=== PATIENT | male | born 1950 | race Caucasian/White ===

== ENCOUNTER 2020-10-28 19:16 | Inpatient (IN) | payer MEDICARE, OTHER ==
[~2020-10-28] VITALS: Ht 182.9 cm; Wt 107.2 kg
[2020-10-28] MEDS ORDERED: VANCOMYCIN HCL 1 GM/D5% WATER 200 ML IV ONE (20:00)
[2020-10-28] MEDS ORDERED: SODIUM CHLORIDE 0.9% 2,000 ML IV ONE (20:00)
[2020-10-28 20:29] LABS: BASOPHILS % (AUTO) 0.2 % (0.0-2.0); EOSINOPHILS % (AUTO) 0 % (1.0-6.0); HEMATOCRIT 42.7 % (41-53); LYMPHOCYTES # (AUTO) 0.5 K/uL (1.0-4.8); LYMPHOCYTES % (AUTO) 2.4 % (22.0-44.0); MEAN CORPUSCULAR HEMOGLOBIN 25.5 pg (26.0-34.0); MEAN CORPUSCULAR HGB CONC 32.8 G/dL (31.0-37.0); MEAN CORPUSCULAR VOLUME 78 fL (80-100); MONOCYTES % (AUTO) 5.3 % (2.0-9.0); NEUTROPHILS # (AUTO) 17.5 K/uL (1.8-7.7); NEUTROPHILS % (AUTO) 92.1 % (40.0-70.0); PLATELET COUNT (AUTO) 165 K/uL (150-450); RED BLOOD CELL COUNT(AUTO) 5.49 MIL/uL (4.50-5.90); RED CELL DISTRIBUTION WIDTH 14.4 % (11.5-14.5)
[2020-10-28 20:41] LABS: ANION GAP 9 mmol/L (8-16); CALCIUM, TOTAL 9.9 mg/dL (8.8-10.5); CARBON DIOXIDE 28 mmol/L (22-29); CHLORIDE 97 mmol/L (98-107); CREATININE 3.07 mg/dL (0.60-1.30); GLOMERULAR FILTR. RATE CALC 20 mL/min (>60); GLUCOSE,RANDOM 156 mg/dL (70-110); POTASSIUM 3.5 mmol/L (3.5-5.1); PROTHROMBIN TIME 11.1 SEC (9.4-11.6); SODIUM SERUM 134 mmol/L (136-145); UREA NITROGEN, BLOOD 50 mg/dL (7-18)
[2020-10-28 20:44] LABS: COVID AG,FIA SOURCE NASOPHARYNGEAL
[2020-10-28 20:47] LABS: APPEARANCE,URINE TURBID (CLEAR); BILIRUBIN,URINE NEGATIVE (NEGATIVE); GLUCOSE, URINE (UA) NEGATIVE (NEGATIVE); KETONES,URINE NEGATIVE (NEGATIVE); LEUKOCYTE ESTERASE ,URINE LARGE (NEGATIVE); NITRATE,URINE NEGATIVE (NEGATIVE); OCCULT BLOOD,URINE LARGE (NEGATIVE); PROTEIN,URINE SEE CONFIRM (NEGATIVE); UROBILINOGEN,URINE 0.2 mg/dL (<=1.0)
[2020-10-28 20:48] LABS: TROPONIN I 0.04 ng/mL (0.00-0.05)
[2020-10-28 20:49] LABS: LACTIC ACID 1.6 mmol/L (0.4-2.0)
[2020-10-28 20:54] LABS: B-TYPE NATRIURETIC PEPTIDE 238 pg/mL (0-100)
[2020-10-28 20:55] LABS: AMMONIA < 10 umol/L (11-32)
[2020-10-28 20:59] LABS: AMPHET/METH SCREEN,URINE NEGATIVE (NEGATIVE); BARBITURATE SCREEN, URINE NEGATIVE (NEGATIVE); BENZODIAZEPINES SCREEN,URINE NEGATIVE (NEGATIVE); CANNABINOID SCREEN,URINE NEGATIVE (NEGATIVE); COCAINE SCREEN,URINE NEGATIVE (NEGATIVE); METHADONE SCREEN, URINE NEGATIVE (NEGATIVE); OPIATE SCREEN,URINE NEGATIVE (NEGATIVE)
[2020-10-28 21:00] LABS: PHENCYCLIDINE SCREEN,URINE NEGATIVE (NEGATIVE)
[2020-10-28 21:05] LABS: ALANINE AMINOTRANSFERASE 17 U/L (12-78); ALBUMIN 3.8 g/dL (3.4-5.0); ALKALINE PHOSPHATASE 81 U/L (46-116); ASPARTATE AMINOTRANSFERASE 14 U/L (15-37); BILIRUBIN,TOTAL 1.6 mg/dL (0.1-1.0); CREATINE KINASE, TOTAL ONLY 118 U/L (39-308); LIPASE 109 U/L (73-393); TOTAL PROTEIN, SERUM 8.7 g/dL (6.4-8.2)
[2020-10-28 21:20] LABS: SULFOSALICYLIC ACID,URINE 2+ (Negative)
[2020-10-28 21:26] LABS: WBC,URINE 51-100 /HPF (0-5)
[2020-10-28 21:27] LABS: BACTERIA,URINE Many /HPF (None Seen)
[2020-10-28] MEDS ORDERED: ONDANSETRON HCL 4 MG/2 ML VIAL IVP PRN (22:00)
[2020-10-28] MEDS ORDERED: ACETAMINOPHEN 325 MG TABLET PO PRN (22:00)
[2020-10-28] MEDS ORDERED: DEXTROSE 50%-WATER 25 GM/50 ML SYRINGE IVP PRN (22:00)
[2020-10-28] MEDS ORDERED: VANCOMYCIN HCL 1 GM/D5% WATER 200 ML IV PRN (22:15)
[2020-10-28 22:40] VITALS: BP 173/82
[2020-10-28] MEDS ORDERED: SODIUM CHLORIDE 0.9% 250 ML IV ONE (22:40)
[2020-10-28 22:51] LABS: CREATININE,URINE RANDOM 225.9 mg/dL (30.0-125.0)
[2020-10-28] MEDS: PIPERACILLIN SODIUM/TAZOBACTAM 2.25 GM in DEXTROSE 5%-WATER 50 ML IV SCH (23:29)
[2020-10-28] MEDS: HEPARIN SODIUM,PORCINE 5,000 UNITS/ML VIAL SQ SCH (23:56)
[2020-10-29] VITALS (7 sets, daily range): BP systolic 124–174; BP diastolic 69–90
[2020-10-29] MEDS ORDERED: VANCOMYCIN HCL 1 GM/D5% WATER 200 ML IV ONE
[2020-10-29] MEDS ORDERED: AmLODIPine BESYLATE 5 MG TABLET PO ONE (00:15)
[2020-10-29] MEDS: PIPERACILLIN SODIUM/TAZOBACTAM 2.25 GM in DEXTROSE 5%-WATER 50 ML IV SCH ×4 (04:57→23:00)
[2020-10-29 05:41] LABS: GLUCOMETER DEV NAME(LOC) 5S.1; GLUCOSE,POINT OF CARE 148 MG/DL (70-110)
[2020-10-29] MEDS: AmLODIPine BESYLATE 5 MG TABLET PO SCH (07:57)
[2020-10-29] MEDS: HEPARIN SODIUM,PORCINE 5,000 UNITS/ML VIAL SQ SCH ×2 (07:58→20:52)
[2020-10-29 08:04] LABS: CALCIUM, TOTAL 8.6 mg/dL (8.8-10.5); CREATININE 2.37 mg/dL (0.60-1.30); POTASSIUM 3.2 mmol/L (3.5-5.1)
[2020-10-29] MEDS ORDERED: POTASSIUM CHLORIDE 20 MEQ ER TABLET PO ONE (10:00)
[2020-10-29] MEDS: SODIUM CHLORIDE 0.45% 1,000 ML IV SCH (11:15)
[2020-10-29] MEDS: INSULIN LISPRO 100 UNITS/ML SQ PRN (12:40)
[2020-10-30] VITALS (7 sets, daily range): BP systolic 132–181; BP diastolic 61–99
[2020-10-30 02:31] LABS: GLUCOMETER DEV NAME(LOC) 5S.2B; GLUCOSE,POINT OF CARE 148 MG/DL (70-110)
[2020-10-30 02:31] LABS: GLUCOMETER DEV NAME(LOC) 5S.2B; GLUCOSE,POINT OF CARE 123 MG/DL (70-110)
[2020-10-30 04:53] LABS: GLUCOMETER DEV NAME(LOC) 5S.1; GLUCOSE,POINT OF CARE 105 MG/DL (70-110)
[2020-10-30] MEDS: PIPERACILLIN SODIUM/TAZOBACTAM 2.25 GM in DEXTROSE 5%-WATER 50 ML IV SCH (05:14)
[2020-10-30 06:07] LABS: GLUCOMETER DEV NAME(LOC) 5N.1C; GLUCOSE,POINT OF CARE 116 MG/DL (70-110)
[2020-10-30] MEDS: SODIUM CHLORIDE 0.45% 1,000 ML IV SCH (06:35)
[2020-10-30 07:01] LABS: BASOPHILS % (AUTO) 0.4 % (0.0-2.0); EOSINOPHILS % (AUTO) 0.9 % (1.0-6.0); HEMATOCRIT 34.9 % (41-53); HEMOGLOBIN 11.7 g/dL (13.5-17.5); LYMPHOCYTES # (AUTO) 0.6 K/uL (1.0-4.8); LYMPHOCYTES % (AUTO) 6.6 % (22.0-44.0); MEAN CORPUSCULAR HEMOGLOBIN 26.1 pg (26.0-34.0); MEAN CORPUSCULAR HGB CONC 33.6 G/dL (31.0-37.0); MEAN CORPUSCULAR VOLUME 78 fL (80-100); MONOCYTES # (AUTO) 0.6 K/uL (0.1-1.0); MONOCYTES % (AUTO) 6.8 % (2.0-9.0); NEUTROPHILS # (AUTO) 7.8 K/uL (1.8-7.7); PLATELET COUNT (AUTO) 123 K/uL (150-450); RED CELL DISTRIBUTION WIDTH 14.3 % (11.5-14.5)
[2020-10-30 07:11] LABS: NEUTROPHILS % (AUTO) 85.3 % (40.0-70.0)
[2020-10-30 07:12] LABS: CALCIUM, TOTAL 8.2 mg/dL (8.8-10.5); CREATININE 1.76 mg/dL (0.60-1.30); MAGNESIUM 2.1 mg/dL (1.80-2.40); VANCOMYCIN,RANDOM 7.2 mcg/mL (25.0-50.0)
[2020-10-30] MEDS: VANCOMYCIN HCL 1.5 GM in DEXTROSE 5%-WATER 250 ML IV SCH (08:33)
[2020-10-30] MEDS: HEPARIN SODIUM,PORCINE 5,000 UNITS/ML VIAL SQ SCH ×2 (08:33→21:20)
[2020-10-30] MEDS: AmLODIPine BESYLATE 5 MG TABLET PO SCH (08:33)
[2020-10-30 09:28] LABS: GLUCOMETER DEV NAME(LOC) 5S.2B; GLUCOSE,POINT OF CARE 94 MG/DL (70-110)
[2020-10-30] MEDS ORDERED: POTASSIUM CHLORIDE 20 MEQ ER TABLET PO ONE (10:15)
[2020-10-30] MEDS: PIPERACILLIN/TAZO 3.375 GM/D5W 50 ML IV SCH ×3 (10:51→21:35)
[2020-10-30] MEDS: INSULIN LISPRO 100 UNITS/ML SQ PRN (11:31)
[2020-10-30 12:03] LABS: GLUCOMETER DEV NAME(LOC) 5S.2B; GLUCOSE,POINT OF CARE 165 MG/DL (70-110)
[2020-10-30 17:46] LABS: GLUCOMETER DEV NAME(LOC) 5S.2B; GLUCOSE,POINT OF CARE 98 MG/DL (70-110)
[2020-10-30] MEDS ORDERED: AmLODIPine BESYLATE 5 MG TABLET PO ONE (23:45)
[2020-10-30] MEDS: NITROGLYCERIN 2% (1 GM=INCH) PACKET TP SCH (23:57)
[2020-10-31] MEDS: PIPERACILLIN/TAZO 3.375 GM/D5W 50 ML IV SCH ×4 (03:55→22:08)
[2020-10-31 05:08] VITALS: BP 173/81
[2020-10-31] MEDS: SODIUM CHLORIDE 0.45% 1,000 ML IV SCH ×2 (05:28→20:55)
[2020-10-31] MEDS: NITROGLYCERIN 2% (1 GM=INCH) PACKET TP SCH (06:02)
[2020-10-31 06:22] LABS: CALCIUM, TOTAL 8.6 mg/dL (8.8-10.5); CREATININE 1.66 mg/dL (0.60-1.30); POTASSIUM 3.1 mmol/L (3.5-5.1)
[2020-10-31 07:26] VITALS: BP 180/85
[2020-10-31] MEDS: VANCOMYCIN HCL 1.5 GM in DEXTROSE 5%-WATER 250 ML IV SCH (07:54)
[2020-10-31] MEDS: HEPARIN SODIUM,PORCINE 5,000 UNITS/ML VIAL SQ SCH ×2 (07:54→20:53)
[2020-10-31] MEDS: AmLODIPine BESYLATE 10 MG TABLET PO SCH (07:54)
[2020-10-31] MEDS ORDERED: POTASSIUM CHLORIDE 20 MEQ ER TABLET PO ONE (09:30)
[2020-10-31] MEDS ORDERED: CloNIDine HCL 0.1 MG TABLET PO PRN (09:45)
[2020-10-31] MEDS: LOSARTAN POTASSIUM 25 MG TABLET PO SCH ×2 (10:52→20:53)
[2020-10-31 11:35] VITALS: BP 127/72
[2020-10-31] MEDS: INSULIN LISPRO 100 UNITS/ML SQ PRN ×2 (12:38→21:01)
[2020-10-31 16:17] VITALS: BP 151/91
[2020-10-31 17:15] LABS: GLUCOMETER DEV NAME(LOC) 5S.2B; GLUCOSE,POINT OF CARE 119 MG/DL (70-110)
[2020-10-31 17:16] LABS: GLUCOMETER DEV NAME(LOC) 5S.2B; GLUCOSE,POINT OF CARE 99 MG/DL (70-110)
[2020-10-31 17:16] LABS: GLUCOMETER DEV NAME(LOC) 5S.2B; GLUCOSE,POINT OF CARE 145 MG/DL (70-110)
[2020-10-31 20:07] VITALS: BP 154/75
[2020-10-31 22:36] LABS: GLUCOMETER DEV NAME(LOC) 5N.1C; GLUCOSE,POINT OF CARE 146 MG/DL (70-110)
[2020-11-01 00:43] VITALS: BP 151/90
[2020-11-01 01:54] LABS: GLUCOMETER DEV NAME(LOC) 5S.1; GLUCOSE,POINT OF CARE 92 MG/DL (70-110)
[2020-11-01] MEDS: PIPERACILLIN/TAZO 3.375 GM/D5W 50 ML IV SCH ×2 (03:08→12:09)
[2020-11-01 04:25] VITALS: BP 157/79
[2020-11-01] MEDS: SODIUM CHLORIDE 0.45% 1,000 ML IV SCH (05:51)
[2020-11-01 07:27] LABS: CALCIUM, TOTAL 8.5 mg/dL (8.8-10.5); CREATININE 1.55 mg/dL (0.60-1.30); POTASSIUM 3.3 mmol/L (3.5-5.1)
[2020-11-01 07:43] VITALS: BP 173/79
[2020-11-01] MEDS: HEPARIN SODIUM,PORCINE 5,000 UNITS/ML VIAL SQ SCH (08:10)
[2020-11-01] MEDS: VANCOMYCIN HCL 1.5 GM in DEXTROSE 5%-WATER 250 ML IV SCH (08:10)
[2020-11-01] MEDS: LOSARTAN POTASSIUM 25 MG TABLET PO SCH (08:10)
[2020-11-01] MEDS: AmLODIPine BESYLATE 10 MG TABLET PO SCH (08:10)
[2020-11-01 11:08] VITALS: BP 158/100
[2020-11-01] MEDS ORDERED: POTASSIUM CHLORIDE 20 MEQ ER TABLET PO ONE (12:45)
[2020-11-01 15:02] VITALS: BP 151/83
[2020-11-01 17:23] LABS: GLUCOMETER DEV NAME(LOC) 5N.3; GLUCOSE,POINT OF CARE 109 MG/DL (70-110)
[2020-11-01] MEDS ORDERED: AMOX1TAB15 PO (17:55)
[2020-11-01] MEDS ORDERED: AMLO-258 PO (17:56)
[2020-11-01] MEDS ORDERED: ASPI-1444 PO (17:57)
[2020-11-01] MEDS ORDERED: LOSA50TA37 PO (17:57)
[2020-11-01 18:42] LABS: GLUCOMETER DEV NAME(LOC) 5S.1; GLUCOSE,POINT OF CARE 134 MG/DL (70-110)
[2020-11-01] MEDS ORDERED: LOSARTAN POTASSIUM 50 MG TABLET PO SCH (21:00)
== END 2020-11-01 18:10 | disposition home or self-care (01) | DRG 602 ==
LOC: EMS 19:19 → 5S 21:34
PROVIDERS: ADMIT Internal Medicine; ATTEND Internal Medicine
DX: L03.116 Cellulitis of left lower limb (principal); R65.11 Systemic inflammatory response syndrome (SIRS) of non-infectious origin with acute organ dysfunction; N17.9 Acute kidney failure, unspecified; N39.0 Urinary tract infection, site not specified; L02.416 Cutaneous abscess of left lower limb; E66.9 Obesity, unspecified; I10 Essential (primary) hypertension; Z20.822 Contact with and (suspected) exposure to COVID-19; E11.9 Type 2 diabetes mellitus without complications; Z68.32 Body mass index [BMI] 32.0-32.9, adult
CPT/HCPCS: 51702; 71045; 76770; 80048; 80053; 80202; 81001; 81002; 82140; 82550; 82570; 82962; 83605; 83690; 83735; 83880; 84132; 84300; 84484; 85025; 85610; 85730; 87040; 87077; 87086; 87186; 93005; 93971; 97161; 99291; G0378; G0480; J1644; J2543; J3370; J7030; J7050; J7060; 36415-L1; 36415-TC

== ENCOUNTER 2021-10-30 00:03 | Inpatient (IN) | payer MEDICARE, OTHER ==
[~2021-10-30] VITALS: Ht 177.8 cm; Wt 105.4 kg
[~2021-10-30 00:03] MED LIST: AMLO-258 PO; AMOX1TAB15 PO; ASPI-1444 PO; LOSA-382 PO
[2021-10-30] MEDS ORDERED: SODIUM CHLORIDE 0.9% 100 ML ONE (00:37)
[2021-10-30] MEDS ORDERED: IOHEXOL 350 MG/ML 100 ML VIAL ONE (00:37)
[2021-10-30 00:38] LABS: BASOPHILS % (AUTO) 0.5 % (0.0-2.0); EOSINOPHILS % (AUTO) 0 % (1.0-6.0); HEMATOCRIT 48.5 % (41-53); HEMOGLOBIN 16.2 g/dL (13.5-17.5); LYMPHOCYTES # (AUTO) 0.2 K/uL (1.0-4.8); MEAN CORPUSCULAR HEMOGLOBIN 26.7 pg (26.0-34.0); MEAN CORPUSCULAR HGB CONC 33.4 G/dL (31.0-37.0); MEAN CORPUSCULAR VOLUME 80 fL (80-100); MONOCYTES # (AUTO) 0.5 K/uL (0.1-1.0); MONOCYTES % (AUTO) 2.4 % (2.0-9.0); NEUTROPHILS # (AUTO) 21.2 K/uL (1.8-7.7); PLATELET COUNT (AUTO) 160 K/uL (150-450); RED BLOOD CELL COUNT(AUTO) 6.08 MIL/uL (4.50-5.90); RED CELL DISTRIBUTION WIDTH 15.4 % (11.5-14.5)
[2021-10-30 00:47] LABS: NEUTROPHILS % (AUTO) 96.1 % (40.0-70.0)
[2021-10-30 00:48] LABS: CALCIUM, TOTAL 9.6 mg/dL (8.8-10.5); CREATININE 1.81 mg/dL (0.60-1.30); POTASSIUM 3.7 mmol/L (3.5-5.1)
[2021-10-30 00:53] LABS: INR 1.1 (0.9-1.1); PROTHROMBIN TIME 11.4 SEC (9.4-11.6)
[2021-10-30 00:54] LABS: ALBUMIN 4.3 g/dL (3.4-5.0); BILIRUBIN,TOTAL 2.3 mg/dL (0.1-1.0); TOTAL PROTEIN, SERUM 8.5 g/dL (6.4-8.2)
[2021-10-30] MEDS ORDERED: SODIUM CHLORIDE 0.9% 2,000 ML IV ONE (01:00)
[2021-10-30] MEDS ORDERED: PIPERACILLIN/TAZO 3.375 GM/D5W 50 ML IV ONE (01:00)
[2021-10-30 01:10] LABS: LACTIC ACID 2.4 mmol/L (0.4-2.0)
[2021-10-30 01:12] LABS: B-TYPE NATRIURETIC PEPTIDE 772 pg/mL (0-100)
[2021-10-30] MEDS ORDERED: ACETAMINOPHEN 1000 MG/ISO-OSM 100 ML IV ONE (01:15)
[2021-10-30 01:23] LABS: AMMONIA 6 umol/L (11-32)
[2021-10-30] MEDS ORDERED: SODIUM CHLORIDE 0.9% 1,000 ML IV ONE ×2 (01:45→07:30)
[2021-10-30] MEDS ORDERED: 0.9% SODIUM CHLORIDE 10 ML SYRINGE IVP PRN (01:45)
[2021-10-30] MEDS ORDERED: ONDANSETRON HCL 4 MG/2 ML VIAL IVP PRN ×2 (01:45→07:30)
[2021-10-30] MEDS ORDERED: VANCOMYCIN HCL 1.5 GM in DEXTROSE 5%-WATER 250 ML IV ONE (01:45)
[2021-10-30 01:57] LABS: COVID AG,FIA SOURCE NASOPHARYNGEAL
[2021-10-30 02:00] LABS: APPEARANCE,URINE CLEAR (CLEAR); BILIRUBIN,URINE NEGATIVE (NEGATIVE); GLUCOSE, URINE (UA) 300-500 mg/dL (NEGATIVE); KETONES,URINE NEGATIVE (NEGATIVE); LEUKOCYTE ESTERASE ,URINE NEGATIVE (NEGATIVE); NITRATE,URINE NEGATIVE (NEGATIVE); OCCULT BLOOD,URINE MODERATE (NEGATIVE); PROTEIN,URINE 30-70 mg/dL (NEGATIVE); UROBILINOGEN,URINE <=1.0 mg/dL (<=1.0)
[2021-10-30 02:06] LABS: AMPHET/METH SCREEN,URINE NEGATIVE (NEGATIVE); BARBITURATE SCREEN, URINE NEGATIVE (NEGATIVE); BENZODIAZEPINES SCREEN,URINE NEGATIVE (NEGATIVE); CANNABINOID SCREEN,URINE NEGATIVE (NEGATIVE); COCAINE SCREEN,URINE NEGATIVE (NEGATIVE); METHADONE SCREEN, URINE NEGATIVE (NEGATIVE); OPIATE SCREEN,URINE NEGATIVE (NEGATIVE); PHENCYCLIDINE SCREEN,URINE NEGATIVE (NEGATIVE)
[2021-10-30 02:10] LABS: BACTERIA,URINE None Seen /HPF (None Seen); WBC,URINE 0-2 /HPF (0-5)
[2021-10-30] MEDS: ASPIRIN 325 MG TABLET PO ONE ×2 (03:05→03:25)
[2021-10-30 06:46] LABS: GLUCOSE,POINT OF CARE 155 MG/DL (70-110)
[2021-10-30] MEDS ORDERED: BISACODYL 10 MG RECTAL RECTAL SUPPOSITORY PR PRN (07:30)
[2021-10-30] MEDS ORDERED: DEXTROSE 50%-WATER 25 GM/50 ML SYRINGE IVP PRN (07:30)
[2021-10-30] MEDS: HEPARIN SODIUM,PORCINE 5,000 UNITS/ML VIAL SQ SCH ×2 (08:00→08:06)
[2021-10-30] MEDS: PIPERACILLIN/TAZO 3.375 GM/D5W 50 ML IV SCH ×3 (09:06→20:19)
[2021-10-30] MEDS: ATORVASTATIN CALCIUM 40 MG TABLET PO SCH (09:07)
[2021-10-30] MEDS: ASPIRIN 81 MG CHEWABLE TABLET PO SCH (09:07)
[2021-10-30] MEDS: PANTOPRAZOLE SODIUM 40 MG/VIAL IVP SCH (09:07)
[2021-10-30] MEDS: VANCOMYCIN HCL 500 MG in DEXTROSE 5%-WATER 100 ML IV SCH ×2 (09:08→21:21)
[2021-10-30 12:26] LABS: GLUCOMETER DEV NAME(LOC) ERT.5; GLUCOSE,POINT OF CARE 101 MG/DL (70-110)
[2021-10-30 13:42] VITALS: BP 159/83
[2021-10-30 15:25] VITALS: BP 148/78
[2021-10-30] MEDS: AmLODIPine BESYLATE 5 MG TABLET PO SCH (16:16)
[2021-10-30 18:46] LABS: GLUCOMETER DEV NAME(LOC) 5N.1C; GLUCOSE,POINT OF CARE 88 MG/DL (70-110)
[2021-10-30 20:10] VITALS: BP 155/80
[2021-10-30] MEDS: ACETAMINOPHEN 325 MG TABLET PO PRN (20:18)
[2021-10-30] MEDS: CARVEDILOL 3.125 MG TABLET PO SCH (20:18)
[2021-10-30] MEDS: APIXABAN 2.5 MG TABLET PO SCH (20:19)
[2021-10-30 20:22] LABS: BASOPHILS % (AUTO) 0.3 % (0.0-2.0); EOSINOPHILS % (AUTO) 0.1 % (1.0-6.0); HEMATOCRIT 38.9 % (41-53); LYMPHOCYTES # (AUTO) 0.5 K/uL (1.0-4.8); LYMPHOCYTES % (AUTO) 3.2 % (22.0-44.0); MEAN CORPUSCULAR HEMOGLOBIN 26.6 pg (26.0-34.0); MEAN CORPUSCULAR HGB CONC 33.4 G/dL (31.0-37.0); MEAN CORPUSCULAR VOLUME 80 fL (80-100); MONOCYTES # (AUTO) 0.8 K/uL (0.1-1.0); MONOCYTES % (AUTO) 5.3 % (2.0-9.0); NEUTROPHILS # (AUTO) 13.3 K/uL (1.8-7.7); PLATELET COUNT (AUTO) 126 K/uL (150-450); RED BLOOD CELL COUNT(AUTO) 4.89 MIL/uL (4.50-5.90); RED CELL DISTRIBUTION WIDTH 15.4 % (11.5-14.5)
[2021-10-30 20:22] LABS: GLUCOMETER DEV NAME(LOC) 5N.1C; GLUCOSE,POINT OF CARE 127 MG/DL (70-110)
[2021-10-30 20:24] LABS: NEUTROPHILS % (AUTO) 91.1 % (40.0-70.0)
[2021-10-30 23:41] VITALS: BP 101/67
[2021-10-31] MEDS: PIPERACILLIN/TAZO 3.375 GM/D5W 50 ML IV SCH ×4 (01:12→20:04)
[2021-10-31 05:00] VITALS: BP 155/97
[2021-10-31 05:42] LABS: GLUCOMETER DEV NAME(LOC) 5N.3; GLUCOSE,POINT OF CARE 115 MG/DL (70-110)
[2021-10-31 07:03] VITALS: BP 158/79
[2021-10-31 07:08] LABS: CALCIUM, TOTAL 8.6 mg/dL (8.8-10.5); CREATININE 1.7 mg/dL (0.60-1.30); POTASSIUM 3.4 mmol/L (3.5-5.1)
[2021-10-31] MEDS: VANCOMYCIN HCL 500 MG in DEXTROSE 5%-WATER 100 ML IV SCH ×2 (09:03→21:59)
[2021-10-31] MEDS: PANTOPRAZOLE SODIUM 40 MG/VIAL IVP SCH (09:03)
[2021-10-31] MEDS: ASPIRIN 81 MG CHEWABLE TABLET PO SCH (09:03)
[2021-10-31] MEDS: AmLODIPine BESYLATE 5 MG TABLET PO SCH (09:03)
[2021-10-31] MEDS: CARVEDILOL 3.125 MG TABLET PO SCH ×2 (09:03→20:04)
[2021-10-31] MEDS: ATORVASTATIN CALCIUM 40 MG TABLET PO SCH (09:03)
[2021-10-31 10:51] VITALS: BP 155/97
[2021-10-31] MEDS ORDERED: DiphenhydrAMINE HCL 25 MG CAPSULE PO PRN (11:15)
[2021-10-31] MEDS ORDERED: POTASSIUM CHLORIDE 20 MEQ ER TABLET PO ONE (11:30)
[2021-10-31] MEDS: APIXABAN 2.5 MG TABLET PO SCH ×2 (12:52→20:04)
[2021-10-31 14:31] LABS: GLUCOMETER DEV NAME(LOC) 5N.3; GLUCOSE,POINT OF CARE 138 MG/DL (70-110)
[2021-10-31 14:43] VITALS: BP 144/76
[2021-10-31 19:40] LABS: GLUCOMETER DEV NAME(LOC) 5N.3; GLUCOSE,POINT OF CARE 100 MG/DL (70-110)
[2021-10-31 19:44] VITALS: BP 167/93
[2021-10-31] MEDS: ACETAMINOPHEN 325 MG TABLET PO PRN (20:05)
[2021-11-01 00:13] VITALS: BP 152/80
[2021-11-01] MEDS: PIPERACILLIN/TAZO 3.375 GM/D5W 50 ML IV SCH ×4 (02:59→20:00)
[2021-11-01 04:46] LABS: GLUCOMETER DEV NAME(LOC) 5N.3; GLUCOSE,POINT OF CARE 131 MG/DL (70-110)
[2021-11-01 05:30] VITALS: BP 173/93
[2021-11-01 06:02] LABS: BASOPHILS % (AUTO) 0.4 % (0.0-2.0); EOSINOPHILS % (AUTO) 1.6 % (1.0-6.0); HEMATOCRIT 39.8 % (41-53); HEMOGLOBIN 13.4 g/dL (13.5-17.5); LYMPHOCYTES # (AUTO) 0.4 K/uL (1.0-4.8); LYMPHOCYTES % (AUTO) 3.7 % (22.0-44.0); MEAN CORPUSCULAR HEMOGLOBIN 26.7 pg (26.0-34.0); MEAN CORPUSCULAR HGB CONC 33.7 G/dL (31.0-37.0); MEAN CORPUSCULAR VOLUME 79 fL (80-100); MONOCYTES # (AUTO) 0.6 K/uL (0.1-1.0); MONOCYTES % (AUTO) 5.6 % (2.0-9.0); NEUTROPHILS # (AUTO) 10.1 K/uL (1.8-7.7); PLATELET COUNT (AUTO) 131 K/uL (150-450); RED BLOOD CELL COUNT(AUTO) 5.02 MIL/uL (4.50-5.90)
[2021-11-01 06:07] LABS: CALCIUM, TOTAL 8.8 mg/dL (8.8-10.5); CREATININE 1.71 mg/dL (0.60-1.30); POTASSIUM 3.6 mmol/L (3.5-5.1); VANCOMYCIN,RANDOM 15.8 mcg/mL (25.0-50.0)
[2021-11-01 06:31] LABS: NEUTROPHILS % (AUTO) 88.7 % (40.0-70.0)
[2021-11-01 07:47] VITALS: BP 163/103
[2021-11-01] MEDS: APIXABAN 2.5 MG TABLET PO SCH ×2 (08:47→20:30)
[2021-11-01] MEDS: ASPIRIN 81 MG CHEWABLE TABLET PO SCH (08:47)
[2021-11-01] MEDS: PANTOPRAZOLE SODIUM 40 MG/VIAL IVP SCH (08:47)
[2021-11-01] MEDS: AmLODIPine BESYLATE 5 MG TABLET PO SCH (08:48)
[2021-11-01] MEDS: ATORVASTATIN CALCIUM 40 MG TABLET PO SCH (08:48)
[2021-11-01] MEDS: CARVEDILOL 3.125 MG TABLET PO SCH ×2 (08:48→20:30)
[2021-11-01] MEDS: VANCOMYCIN HCL 500 MG in DEXTROSE 5%-WATER 100 ML IV SCH (10:06)
[2021-11-01 11:55] VITALS: BP 126/71
[2021-11-01 12:17] LABS: GLUCOMETER DEV NAME(LOC) 5N.3; GLUCOSE,POINT OF CARE 133 MG/DL (70-110)
[2021-11-01 16:19] VITALS: BP 154/83
[2021-11-01 18:21] LABS: GLUCOMETER DEV NAME(LOC) 5N.3; GLUCOSE,POINT OF CARE 94 MG/DL (70-110)
[2021-11-01] MEDS: VANCOMYCIN HCL 750 MG in DEXTROSE 5%-WATER 250 ML IV SCH (19:00)
[2021-11-01 20:03] VITALS: BP 156/91
[2021-11-01] MEDS: ACETAMINOPHEN 325 MG TABLET PO PRN (20:30)
[2021-11-02 00:09] VITALS: BP 131/79
[2021-11-02] MEDS: PIPERACILLIN/TAZO 3.375 GM/D5W 50 ML IV SCH ×4 (01:43→21:16)
[2021-11-02 05:46] VITALS: BP 148/83
[2021-11-02 06:13] LABS: CALCIUM, TOTAL 8.8 mg/dL (8.8-10.5); CREATININE 1.59 mg/dL (0.60-1.30)
[2021-11-02] MEDS: VANCOMYCIN HCL 750 MG in DEXTROSE 5%-WATER 250 ML IV SCH (07:00)
[2021-11-02 07:03] VITALS: BP 144/94
[2021-11-02] MEDS: PANTOPRAZOLE SODIUM 40 MG/VIAL IVP SCH (08:03)
[2021-11-02] MEDS: CARVEDILOL 3.125 MG TABLET PO SCH ×2 (08:03→21:16)
[2021-11-02] MEDS: APIXABAN 2.5 MG TABLET PO SCH ×2 (08:03→21:16)
[2021-11-02] MEDS: ASPIRIN 81 MG CHEWABLE TABLET PO SCH (08:03)
[2021-11-02] MEDS: ATORVASTATIN CALCIUM 40 MG TABLET PO SCH (08:03)
[2021-11-02] MEDS: AmLODIPine BESYLATE 5 MG TABLET PO SCH (08:04)
[2021-11-02 10:56] VITALS: BP 166/80
[2021-11-02 11:51] LABS: GLUCOMETER DEV NAME(LOC) 5N.1C; GLUCOSE,POINT OF CARE 139 MG/DL (70-110)
[2021-11-02] MEDS ORDERED: VANCOMYCIN HCL 1.25 GM in DEXTROSE 5%-WATER 250 ML IV ONE (14:00)
[2021-11-02] MEDS ORDERED: VANCOMYCIN HCL 1.5 GM in DEXTROSE 5%-WATER 250 ML IV ONE (14:00)
[2021-11-02 16:42] VITALS: BP 149/90
[2021-11-02 18:22] LABS: GLUCOMETER DEV NAME(LOC) 5N.1C; GLUCOSE,POINT OF CARE 107 MG/DL (70-110)
[2021-11-02] MEDS ORDERED: POTASSIUM CHLORIDE 20 MEQ ER TABLET PO ONE (20:00)
[2021-11-02 20:10] VITALS: BP 186/106
[2021-11-02 21:16] LABS: GLUCOMETER DEV NAME(LOC) 5N.1C; GLUCOSE,POINT OF CARE 123 MG/DL (70-110)
[2021-11-02] MEDS: ACETAMINOPHEN 325 MG TABLET PO PRN (21:16)
[2021-11-03] VITALS (8 sets, daily range): BP systolic 138–187; BP diastolic 75–105
[2021-11-03] MEDS: PIPERACILLIN/TAZO 3.375 GM/D5W 50 ML IV SCH ×4 (01:13→21:09)
[2021-11-03] MEDS: HydrALAZINE HCL 20 MG/ML VIAL IVP PRN ×2 (04:19→23:45)
[2021-11-03 06:01] LABS: BASOPHILS % (AUTO) 0.5 % (0.0-2.0); EOSINOPHILS % (AUTO) 3.4 % (1.0-6.0); HEMATOCRIT 39.8 % (41-53); HEMOGLOBIN 13.8 g/dL (13.5-17.5); LYMPHOCYTES # (AUTO) 0.7 K/uL (1.0-4.8); LYMPHOCYTES % (AUTO) 8.3 % (22.0-44.0); MEAN CORPUSCULAR HEMOGLOBIN 27.3 pg (26.0-34.0); MEAN CORPUSCULAR HGB CONC 34.6 G/dL (31.0-37.0); MEAN CORPUSCULAR VOLUME 79 fL (80-100); MONOCYTES # (AUTO) 0.8 K/uL (0.1-1.0); MONOCYTES % (AUTO) 10.4 % (2.0-9.0); NEUTROPHILS # (AUTO) 6.1 K/uL (1.8-7.7); NEUTROPHILS % (AUTO) 77.4 % (40.0-70.0); PLATELET COUNT (AUTO) 168 K/uL (150-450); RED BLOOD CELL COUNT(AUTO) 5.04 MIL/uL (4.50-5.90); RED CELL DISTRIBUTION WIDTH 15.4 % (11.5-14.5)
[2021-11-03 06:18] LABS: BILIRUBIN,TOTAL 1.1 mg/dL (0.1-1.0); CALCIUM, TOTAL 9.4 mg/dL (8.8-10.5); CREATININE 1.64 mg/dL (0.60-1.30); POTASSIUM 3.6 mmol/L (3.5-5.1); TOTAL PROTEIN, SERUM 7.7 g/dL (6.4-8.2)
[2021-11-03 07:06] LABS: GLUCOMETER DEV NAME(LOC) 5N.3; GLUCOSE,POINT OF CARE 118 MG/DL (70-110)
[2021-11-03] MEDS ORDERED: VANCOMYCIN HCL 750 MG in DEXTROSE 5%-WATER 250 ML IV SCH (08:00)
[2021-11-03] MEDS: AmLODIPine BESYLATE 5 MG TABLET PO SCH (08:10)
[2021-11-03] MEDS: APIXABAN 2.5 MG TABLET PO SCH ×2 (08:10→21:10)
[2021-11-03] MEDS: PANTOPRAZOLE SODIUM 40 MG/VIAL IVP SCH (08:10)
[2021-11-03] MEDS: ATORVASTATIN CALCIUM 40 MG TABLET PO SCH (08:10)
[2021-11-03] MEDS: VANCOMYCIN HCL 1.25 GM in DEXTROSE 5%-WATER 250 ML IV SCH (08:10)
[2021-11-03] MEDS: CARVEDILOL 3.125 MG TABLET PO SCH ×2 (08:11→21:10)
[2021-11-03] MEDS: ASPIRIN 81 MG CHEWABLE TABLET PO SCH (08:11)
[2021-11-03] MEDS: INSULIN LISPRO 100 UNITS/ML SQ PRN ×2 (11:57→21:10)
[2021-11-03 17:51] LABS: GLUCOMETER DEV NAME(LOC) 5N.1C; GLUCOSE,POINT OF CARE 104 MG/DL (70-110)
[2021-11-03] MEDS: TERBINAFINE HCL 1% 30 GM CREAM TP SCH (21:10)
[2021-11-03 21:52] LABS: GLUCOMETER DEV NAME(LOC) 5N.3; GLUCOSE,POINT OF CARE 153 MG/DL (70-110)
[2021-11-03 21:52] LABS: GLUCOMETER DEV NAME(LOC) 5N.3; GLUCOSE,POINT OF CARE 187 MG/DL (70-110)
[2021-11-04] MEDS: PIPERACILLIN/TAZO 3.375 GM/D5W 50 ML IV SCH ×4 (01:50→19:39)
[2021-11-04 03:45] VITALS: BP 150/85
[2021-11-04 06:04] LABS: BASOPHILS % (AUTO) 0.8 % (0.0-2.0); EOSINOPHILS % (AUTO) 3.8 % (1.0-6.0); HEMATOCRIT 39.9 % (41-53); HEMOGLOBIN 13.7 g/dL (13.5-17.5); LYMPHOCYTES # (AUTO) 0.8 K/uL (1.0-4.8); LYMPHOCYTES % (AUTO) 11.4 % (22.0-44.0); MEAN CORPUSCULAR HEMOGLOBIN 27.2 pg (26.0-34.0); MEAN CORPUSCULAR HGB CONC 34.4 G/dL (31.0-37.0); MEAN CORPUSCULAR VOLUME 79 fL (80-100); MONOCYTES # (AUTO) 0.8 K/uL (0.1-1.0); NEUTROPHILS # (AUTO) 5.4 K/uL (1.8-7.7); PLATELET COUNT (AUTO) 202 K/uL (150-450); RED BLOOD CELL COUNT(AUTO) 5.05 MIL/uL (4.50-5.90); RED CELL DISTRIBUTION WIDTH 15.5 % (11.5-14.5)
[2021-11-04 06:16] LABS: GLUCOMETER DEV NAME(LOC) 5N.3; GLUCOSE,POINT OF CARE 105 MG/DL (70-110)
[2021-11-04 06:19] LABS: ALBUMIN 2.7 g/dL (3.4-5.0); BILIRUBIN,TOTAL 1.1 mg/dL (0.1-1.0); CALCIUM, TOTAL 9.2 mg/dL (8.8-10.5); CREATININE 1.57 mg/dL (0.60-1.30); POTASSIUM 3.7 mmol/L (3.5-5.1); TOTAL PROTEIN, SERUM 7.2 g/dL (6.4-8.2)
[2021-11-04 07:55] VITALS: BP 152/94
[2021-11-04] MEDS: PANTOPRAZOLE SODIUM 40 MG/VIAL IVP SCH (08:38)
[2021-11-04] MEDS: ATORVASTATIN CALCIUM 40 MG TABLET PO SCH (08:38)
[2021-11-04] MEDS: CARVEDILOL 3.125 MG TABLET PO SCH ×2 (08:38→21:05)
[2021-11-04] MEDS: APIXABAN 2.5 MG TABLET PO SCH ×2 (08:38→21:06)
[2021-11-04] MEDS: VANCOMYCIN HCL 1.25 GM in DEXTROSE 5%-WATER 250 ML IV SCH (08:38)
[2021-11-04] MEDS: ASPIRIN 81 MG CHEWABLE TABLET PO SCH (08:38)
[2021-11-04] MEDS: AmLODIPine BESYLATE 5 MG TABLET PO SCH (08:38)
[2021-11-04] MEDS: TERBINAFINE HCL 1% 30 GM CREAM TP SCH ×2 (08:39→21:11)
[2021-11-04 11:20] VITALS: BP 152/77
[2021-11-04 12:32] LABS: GLUCOMETER DEV NAME(LOC) 5N.3; GLUCOSE,POINT OF CARE 158 MG/DL (70-110)
[2021-11-04] MEDS: INSULIN LISPRO 100 UNITS/ML SQ PRN ×2 (12:34→21:09)
[2021-11-04 15:01] VITALS: BP 122/71
[2021-11-04 18:21] LABS: GLUCOMETER DEV NAME(LOC) 5N.3; GLUCOSE,POINT OF CARE 99 MG/DL (70-110)
[2021-11-04 19:51] VITALS: BP 151/93
[2021-11-04] MEDS: LORATADINE 10 MG TABLET PO SCH (21:12)
[2021-11-04 21:45] LABS: GLUCOMETER DEV NAME(LOC) 5N.1C; GLUCOSE,POINT OF CARE 176 MG/DL (70-110)
[2021-11-05] VITALS (8 sets, daily range): BP systolic 100–162; BP diastolic 58–116
[2021-11-05] MEDS: PIPERACILLIN/TAZO 3.375 GM/D5W 50 ML IV SCH ×4 (00:56→18:02)
[2021-11-05 06:19] LABS: BASOPHILS % (AUTO) 0.9 % (0.0-2.0); EOSINOPHILS % (AUTO) 4.6 % (1.0-6.0); HEMATOCRIT 37.8 % (41-53); HEMOGLOBIN 12.9 g/dL (13.5-17.5); LYMPHOCYTES # (AUTO) 0.9 K/uL (1.0-4.8); MEAN CORPUSCULAR HEMOGLOBIN 26.9 pg (26.0-34.0); MEAN CORPUSCULAR HGB CONC 34.2 G/dL (31.0-37.0); MEAN CORPUSCULAR VOLUME 79 fL (80-100); MONOCYTES # (AUTO) 0.7 K/uL (0.1-1.0); MONOCYTES % (AUTO) 9.9 % (2.0-9.0); NEUTROPHILS % (AUTO) 71.6 % (40.0-70.0); PLATELET COUNT (AUTO) 244 K/uL (150-450); RED CELL DISTRIBUTION WIDTH 15.3 % (11.5-14.5)
[2021-11-05 06:35] LABS: ALBUMIN 2.6 g/dL (3.4-5.0); CALCIUM, TOTAL 8.8 mg/dL (8.8-10.5); CREATININE 1.8 mg/dL (0.60-1.30); POTASSIUM 3.5 mmol/L (3.5-5.1)
[2021-11-05 06:48] LABS: VANCOMYCIN,RANDOM 17.9 mcg/mL (25.0-50.0)
[2021-11-05 06:56] LABS: GLUCOMETER DEV NAME(LOC) 5N.1C; GLUCOSE,POINT OF CARE 107 MG/DL (70-110)
[2021-11-05] MEDS: AmLODIPine BESYLATE 5 MG TABLET PO SCH (08:14)
[2021-11-05] MEDS: LORATADINE 10 MG TABLET PO SCH (08:15)
[2021-11-05] MEDS: PANTOPRAZOLE SODIUM 40 MG/VIAL IVP SCH (08:15)
[2021-11-05] MEDS: ASPIRIN 81 MG CHEWABLE TABLET PO SCH (08:15)
[2021-11-05] MEDS: ATORVASTATIN CALCIUM 40 MG TABLET PO SCH (08:15)
[2021-11-05] MEDS: CARVEDILOL 3.125 MG TABLET PO SCH ×2 (08:16→20:26)
[2021-11-05] MEDS: TERBINAFINE HCL 1% 30 GM CREAM TP SCH ×2 (08:16→20:32)
[2021-11-05] MEDS: ACETAMINOPHEN 325 MG TABLET PO PRN (08:19)
[2021-11-05] MEDS: APIXABAN 2.5 MG TABLET PO SCH ×2 (08:19→20:26)
[2021-11-05] MEDS: VANCOMYCIN HCL 1.25 GM in DEXTROSE 5%-WATER 250 ML IV SCH (08:19)
[2021-11-05] MEDS: INSULIN LISPRO 100 UNITS/ML SQ PRN (12:22)
[2021-11-05 18:11] LABS: GLUCOMETER DEV NAME(LOC) 5N.1C; GLUCOSE,POINT OF CARE 90 MG/DL (70-110)
[2021-11-05 18:11] LABS: GLUCOMETER DEV NAME(LOC) 5N.1C; GLUCOSE,POINT OF CARE 221 MG/DL (70-110)
[2021-11-05 21:41] LABS: GLUCOMETER DEV NAME(LOC) 5N.1C; GLUCOSE,POINT OF CARE 114 MG/DL (70-110)
[2021-11-06] MEDS: PIPERACILLIN/TAZO 3.375 GM/D5W 50 ML IV SCH ×2 (00:38→06:14)
[2021-11-06 03:35] VITALS: BP 131/61
[2021-11-06 06:03] LABS: BASOPHILS % (AUTO) 1.1 % (0.0-2.0); EOSINOPHILS % (AUTO) 4.4 % (1.0-6.0); HEMATOCRIT 37.6 % (41-53); HEMOGLOBIN 12.7 g/dL (13.5-17.5); LYMPHOCYTES # (AUTO) 0.9 K/uL (1.0-4.8); LYMPHOCYTES % (AUTO) 11.7 % (22.0-44.0); MEAN CORPUSCULAR HEMOGLOBIN 26.6 pg (26.0-34.0); MEAN CORPUSCULAR HGB CONC 33.7 G/dL (31.0-37.0); MEAN CORPUSCULAR VOLUME 79 fL (80-100); MONOCYTES # (AUTO) 0.7 K/uL (0.1-1.0); MONOCYTES % (AUTO) 9.2 % (2.0-9.0); NEUTROPHILS # (AUTO) 5.4 K/uL (1.8-7.7); NEUTROPHILS % (AUTO) 73.6 % (40.0-70.0); PLATELET COUNT (AUTO) 258 K/uL (150-450); RED BLOOD CELL COUNT(AUTO) 4.76 MIL/uL (4.50-5.90); RED CELL DISTRIBUTION WIDTH 15.3 % (11.5-14.5)
[2021-11-06 06:30] LABS: ALBUMIN 2.6 g/dL (3.4-5.0); BILIRUBIN,TOTAL 0.8 mg/dL (0.1-1.0); CALCIUM, TOTAL 8.7 mg/dL (8.8-10.5); CREATININE 1.98 mg/dL (0.60-1.30); POTASSIUM 3.5 mmol/L (3.5-5.1); TOTAL PROTEIN, SERUM 6.8 g/dL (6.4-8.2)
[2021-11-06 07:37] VITALS: BP 177/89
[2021-11-06] MEDS ORDERED: VANCOMYCIN HCL 1 GM/D5% WATER 200 ML IV SCH (08:00)
[2021-11-06] MEDS ORDERED: SODIUM CHLORIDE 0.9% 250 ML IV ONE (08:16)
[2021-11-06] MEDS: TERBINAFINE HCL 1% 30 GM CREAM TP SCH (09:00)
[2021-11-06] MEDS: ATORVASTATIN CALCIUM 40 MG TABLET PO SCH (09:00)
[2021-11-06] MEDS: AmLODIPine BESYLATE 5 MG TABLET PO SCH (09:00)
[2021-11-06] MEDS: LORATADINE 10 MG TABLET PO SCH (09:00)
[2021-11-06] MEDS: CARVEDILOL 3.125 MG TABLET PO SCH (09:00)
[2021-11-06] MEDS: APIXABAN 2.5 MG TABLET PO SCH (09:00)
[2021-11-06] MEDS: ASPIRIN 81 MG CHEWABLE TABLET PO SCH (09:00)
[2021-11-06] MEDS: PANTOPRAZOLE SODIUM 40 MG/VIAL IVP SCH (09:00)
== END 2021-11-06 09:25 | disposition left against medical advice (07) | DRG 871 ==
LOC: EMS 00:17 → 5N 11:33
PROVIDERS: ADMIT Internal Medicine; ATTEND Internal Medicine
PROC: 5A09357 Assistance with Respiratory Ventilation, Less than 24 Consecutive Hours, Continuous Positive Airway Pressure (ICD-10-PCS; principal; 2021-11-01)
DX: A41.9 Sepsis, unspecified organism (principal); G92.8 Other toxic encephalopathy; L03.116 Cellulitis of left lower limb; N17.9 Acute kidney failure, unspecified; E11.22 Type 2 diabetes mellitus with diabetic chronic kidney disease; Z20.822 Contact with and (suspected) exposure to COVID-19; Z53.29 Procedure and treatment not carried out because of patient's decision for other reasons; E87.6 Hypokalemia; H91.90 Unspecified hearing loss, unspecified ear; I48.91 Unspecified atrial fibrillation; N18.9 Chronic kidney disease, unspecified; E11.65 Type 2 diabetes mellitus with hyperglycemia
CPT/HCPCS: 51702; 70496; 70498; 71045; 80048; 80053; 80202; 81001; 82140; 82948; 82962; 83605; 83690; 83880; 84484; 85025; 85610; 85730; 86850; 86900; 86901; 87040; 92610; 93005; 93971; 97110; 97116; 97163; 97530; 99291; C9113; G0480; J0131; J0360; J2543; J3370; J7030; J7050; J7060; Q9967; 36415-L1; 36415-TC; 70450; 70450-TC